=== PATIENT | female | born 1995 | race Caucasian/White ===

== ENCOUNTER 2019-06-19 20:00 | Inpatient (IN) | payer OTHER ==
[2019-06-19] MEDS ORDERED: METHYLERGONOVINE 0.2 MG INJ IM (21:00)
[2019-06-19] MEDS ORDERED: MINERAL OIL LIGHT 10 ML VIAL TOP (21:00)
[2019-06-19] MEDS ORDERED: LIDOCAINE 1% (MPF) 30 ML INJ INJ (21:00)
[2019-06-19] MEDS ORDERED: CARBOPROST 250 MCG INJ IM (21:00)
[2019-06-19] MEDS ORDERED: OXYTOCIN 30 UNITS/LR 500 ML IV (21:00)
[2019-06-19] MEDS ORDERED: IBUPROFEN 600 MG TAB PO (21:00)
[2019-06-19] MEDS ORDERED: MISOPROSTOL 200 MCG TAB PR (21:00)
[2019-06-19] MEDS ORDERED: BUTORPHANOL 2 MG INJ IV ×2 (21:00)
[2019-06-19 21:11] LABS: ADD MAN DIFF? NO
[2019-06-19 21:13] LABS: BASOPHILS % 0.3 % (0.0-2.0); EOSINOPHILS # 0.1 10^3/ul (0.0-0.5); EOSINOPHILS % 0.6 % (0.0-7.0); HEMATOCRIT 33.6 % (37.0-47.0); HEMOGLOBIN 11.3 g/dl (12.0-16.0); LYMPHOCYTES % 16.4 % (15.0-51.0); MEAN CORPUSCULAR HEMOGLOBIN 30.8 pg (29.0-33.0); MEAN CORPUSCULAR HGB CONC 33.6 g/dl (32.0-37.0); MEAN CORPUSCULAR VOLUME 91.6 fl (82.0-101.0); MONOCYTE # 0.9 10^3/ul (0.3-0.9); MONOCYTES % 7.3 % (0.0-11.0); NEUTROPHIL # 9.1 10^3/ul (1.6-7.5); NEUTROPHILS % 74.9 % (39.0-77.0); PLATELET COUNT 157 10^3/UL (140-415); RED BLOOD COUNT 3.67 10^6/ul (4.20-5.40); RED CELL DISTRIBUTION WIDTH 12.7 % (11.5-14.5)
[2019-06-19 21:13] LABS: WHITE BLOOD COUNT 12.1 10^3/ul (4.8-10.8)
[2019-06-19] MEDS: LACTATED RINGER'S 1,000 ML IV ×3 (21:19→23:45)
[2019-06-19] MEDS: AMPICILLIN 2 GM/NS (PMX) 100 ML IV (21:20)
[2019-06-19 21:29] LABS: ADD UMIC YES; UR ASCORBIC ACID NEGATIVE (NEGATIVE); UR BACTERIA MODERATE /HPF (NONE SEEN); UR BILIRUBIN (Dip) NEGATIVE (NEGATIVE); UR BLOOD (Dip) NEGATIVE (NEGATIVE); UR CLARITY CLOUDY (CLEAR); UR COLOR AMBER (YELLOW); UR GLUCOSE (Dip) NEGATIVE (NEGATIVE); UR KETONES (Dip) TRACE mg/dL (NEGATIVE); UR LEUKOCYTE ESTERASE (Dip) 3+ Leu/ul (NEGATIVE); UR MUCUS MANY /HPF (NONE SEEN); UR NITRITE (Dip) NEGATIVE (NEGATIVE); UR RBC 2 /HPF (0-5); UR SPECIFIC GRAVITY (Dip) 1.028 (1.003-1.030); UR SQUAMOUS EPITHELIAL CELL MANY /HPF (FEW); UR TOTAL PROTEIN (Dip) NEGATIVE (NEGATIVE); UR UROBILINOGEN (Dip) NEGATIVE (NEGATIVE); UR WBC 22 /HPF (0-5)
[2019-06-19 21:33] LABS: INR 0.89; PROTIME 12.2 Sec (11.9-14.9)
[2019-06-19 21:34] LABS: AMPHETAMINE/METHAMPHETAMINE NEGATIVE (NEGATIVE); BARBITURATES NEGATIVE (NEGATIVE); BENZODIAZEPINES NEGATIVE (NEGATIVE); CANNABINOIDS NEGATIVE (NEGATIVE); COCAINE NEGATIVE (NEGATIVE); OPIATES NEGATIVE (NEGATIVE); PARTIAL THROMBOPLASTIN TIME 27.9 Sec (23.0-35.0)
[2019-06-19] MEDS ORDERED: FENTAnyl 2MCG/ML-ROPIV 0.2% 100 ML (21:45)
[2019-06-19] MEDS ORDERED: NALOXONE (0.4 MG/ML) INJ IV (22:00)
[2019-06-19] MEDS ORDERED: FENTAnyl 2MCG/ML-ROPIV 0.2% 100 ML BAG EPI (22:00)
[2019-06-19 22:05] LABS: HEPATITIS B SURFACE ANTIGEN NEGATIVE (NEGATIVE)
[2019-06-20] MEDS ORDERED: ONDANSETRON 4 MG INJ IV (00:30)
[2019-06-20] MEDS ORDERED: METHYLERGONOVINE 0.2 MG INJ IM (00:30)
[2019-06-20] MEDS ORDERED: MISOPROSTOL 200 MCG TAB PR (00:30)
[2019-06-20] MEDS ORDERED: NACL 0.9% 3 ML SYG IV (00:30)
[2019-06-20] MEDS ORDERED: OXYTOCIN 30 UNITS/LR 500 ML IV (00:30)
[2019-06-20] MEDS ORDERED: CARBOPROST 250 MCG INJ IM (00:30)
[2019-06-20] MEDS ORDERED: ACETAMINOPHEN 325 MG TAB PO (00:30)
[2019-06-20] MEDS ORDERED: OXYCODONE/ASPIRIN (4.88/325) TAB PO ×2 (00:30)
[2019-06-20] MEDS ORDERED: DIBUCAINE 1% 30 GM OINT TOP (00:30)
[2019-06-20] MEDS: OXYTOCIN 30 UNITS/LR 500 ML IV ×3 (00:36→05:05)
[2019-06-20] MEDS ORDERED: AMPICILLIN 1 GM/NS (PMX) 50 ML IV (01:00)
[2019-06-20] MEDS: WITCH HAZEL/GLYCERIN PAD PR (02:22)
[2019-06-20] MEDS: LANOLIN HPA 1 PKT TOP (02:22)
[2019-06-20] MEDS: BENZOCAINE 20% 56 ML SPRAY TOP (02:23)
[2019-06-20] MEDS: IBUPROFEN 600 MG TAB PO ×3 (05:26→18:16)
[2019-06-20] MEDS: SENNA/DOCUSATE NA (8.6MG/50MG) TAB PO ×2 (09:29→21:32)
[2019-06-20 22:16] LABS: RAPID PLASMA REAGIN NONREACTIVE (NR)
[2019-06-21] MEDS: IBUPROFEN 600 MG TAB PO ×3 (00:43→11:51)
[2019-06-21 08:13] LABS: ADD MAN DIFF? NO
[2019-06-21 08:18] LABS: ABNORMAL IP MESSAGE 1; BASOPHILS % 0.5 % (0.0-2.0); EOSINOPHILS # 0.1 10^3/ul (0.0-0.5); EOSINOPHILS % 1.5 % (0.0-7.0); HEMATOCRIT 31.6 % (37.0-47.0); HEMOGLOBIN 10.2 g/dl (12.0-16.0); LYMPHOCYTES # 1.8 10^3/ul (0.8-2.9); LYMPHOCYTES % 21.3 % (15.0-51.0); MEAN CORPUSCULAR HEMOGLOBIN 30.6 pg (29.0-33.0); MEAN CORPUSCULAR HGB CONC 32.3 g/dl (32.0-37.0); MEAN CORPUSCULAR VOLUME 94.9 fl (82.0-101.0); MEAN PLATELET VOLUME 13.1 fl (7.4-10.4); MONOCYTE # 0.6 10^3/ul (0.3-0.9); MONOCYTES % 7.7 % (0.0-11.0); NEUTROPHIL # 5.7 10^3/ul (1.6-7.5); NEUTROPHILS % 68.5 % (39.0-77.0); PLATELET COUNT 124 10^3/UL (140-415); RED BLOOD COUNT 3.33 10^6/ul (4.20-5.40)
[2019-06-21 08:18] LABS: WHITE BLOOD COUNT 8.2 10^3/ul (4.8-10.8)
[2019-06-21 08:20] LABS: POSITIVE DIFF @See below
[2019-06-21] MEDS: SENNA/DOCUSATE NA (8.6MG/50MG) TAB PO (09:27)
[2019-06-21 15:48] LABS: RAPID PLASMA REAGIN NONREACTIVE (NR)
[2019-06-27] MEDS ORDERED: PROPOFOL 40 ML (12:36)
[2019-06-27] MEDS ORDERED: LIDOCAINE 100 MG SYRINGE (12:36)
[2019-06-27] MEDS ORDERED: FENTAnyl 50 MCG/ML VIAL (12:37)
== END 2019-06-21 16:59 | disposition home or self-care (01) | DRG 806 ==
LOC: OBT 20:00 → PP1 06-20 01:33 → L-D 20:02 → OBT 20:35 → L-D 20:35
PROC: 10E0XZZ Delivery of Products of Conception, External Approach (ICD-10-PCS; principal; 2019-06-20)
PROC: 0HQ9XZZ Repair Perineum Skin, External Approach (ICD-10-PCS; 2019-06-20)
PROC: 3E033VJ Introduction of Other Hormone into Peripheral Vein, Percutaneous Approach (ICD-10-PCS; 2019-06-20)
DX: O69.81X0 Labor and delivery complicated by cord around neck, without compression, not applicable or unspecified (principal); O71.4 Obstetric high vaginal laceration alone; Z37.0 Single live birth; Z3A.39 39 weeks gestation of pregnancy
CPT/HCPCS: 62322; 76815; 80307; 81001; 85025; 85610; 85730; 86592; 86850; 86900; 86901; 87340; 99464